=== PATIENT | female | born 1955 | race Caucasian/White ===

== ENCOUNTER 2017-01-15 21:00 | Emergency (ER) | payer MEDICARE, OTHER ==
--- NOTE | ~2017-01-15 | EHP ---
ER History and Physical [address] [place]. [address] NAME: DANNY HEIN : 57 STATUS : [facility] PAT#: [id number] AGE: 61 ADM/REG DATE : 01/15/17 MR#: [id number] REPORT SERV DATE: 01/24/17 DICTATED BY: STACIA HERNANDEZ DATE: 01/24/17 REPORT STATUS : Draft TRANSCRIBED BY: MODL DATE: 01/24/17 ADDENDUM PHYSICAL EXAMINATION: GENERAL: This is an alert, oriented, elderly, white female, in no acute distress. VITAL SIGNS: Blood pressure 140/69, pulse 88, respiratory rate 16, and sats 97% to 100%. HEENT: Within normal limits. Moist mucosa. LUNGS: Clear to auscultation. No wheezing, rales, or rhonchi. Normal effort. HEART: Regular rate and rhythm. No murmurs, gallops, or rubs. ABDOMEN: Bowel sounds are normal. Soft, nontender. Normal system. MUSCULOSKELETAL: Within normal limits. SKIN: Shows no rashes. Normal turgor. LYMPH SYSTEM: No edema or adenopathy. JIE/JULIO KRYSTYNA Riojas / [id number]
[2017-01-15 15:31] LABS: BASOPHILS 0.7 %; BASOPHILS ABSOLUTE 0.05 10/3/uL (0.0-0.16); EOSINOPHILS 0.8 %; EOSINOPHILS ABSOLUTE 0.06 10/3/uL (0.0-0.53); HEMATOCRIT 36.3 % (36.0-48.0); HEMOGLOBIN 12.2 g/dL (12.0-16.0); IMMATURE GRANULOCYTES 0.1 %; IMMATURE GRANULOCYTES ABSOLUTE 0.01 10/3/uL (0.0-0.11); LYMPHOCYTES 21.2 %; LYMPHOCYTES ABSOLUTE 1.63 10/3/uL (0.67-4.30); MEAN CORPUS HGB CONC 33.6 g/dL (32.0-36.0); MEAN CORPUSCULAR HEMOGLOB 27.2 pg (26.0-34.0); MEAN CORPUSCULAR VOLUME 80.8 fL (80-100); MEAN PLATELET VOLUME 8.8 fL (9.2-13.0); MONOCYTES 9.4 %; MONOCYTES ABSOLUTE 0.72 10/3/uL (0.21-1.20); NEUTROPHILS 67.8 %; NEUTROPHILS ABSOLUTE 5.21 10/3/uL (2.02-8.40); PLATELET COUNT 332 10/3/uL (150-400); RBC DISTRIBUTION WIDTH 14.4 % (12.0-16.0); RED CELL COUNT 4.49 10/6/uL (4.0-5.6); WHITE BLOOD CELLS 7.7 10/3/uL (4.5-10.5)
[2017-01-15 15:33] LABS: MANUAL DIFF NO %
[2017-01-15 15:39] LABS: ASCORBIC ACID (UR NOT ORDER) NEG (NEG); BILIRUBIN, URINE NEGATIVE (NEG); ER URINALYSIS TAT 0 Hrs 14 Mins; KETONE, URINE 20 MG/DL (NEG); NITRITE (URINE) NEG (NEG); WBC (NOT ORDERED) (RFLEX) 2 (0-5)
[2017-01-15 15:39] LABS: INTERNATIONAL NORMAL RATI 1.1 UNITS (-); PARTIAL THROMBO TIME 29.9 SEC (22.5-37.2); PROTIME (NOT ORD) 14.2 SEC (12.0-14.5)
[2017-01-15 15:41] LABS: LEUKOCYTE ESTERASE(NOT OR TRACE (NEG)
[2017-01-15 15:49] LABS: BUN (BLOOD UREA NITROGEN) 12 MG/DL (6-23); CALCIUM, SERUM 9.2 MG/DL (8.5-10.4); CHEST PAIN PROFILE TAT 0 Hrs 24 Mins; CHLORIDE, SERUM 95 MMOL/L (96-112); CO2 (CARBON DIOXIDE) 27 MMOL/L (24-34); CREATININE 0.83 MG/DL (0.55-1.02); GFR AFRICAN AMERICAN 89 ML/MIN (>=60); GFR NON AFRICAN AMERICAN 77 ML/MIN (>=60); GLUCOSE, SERUM 91 MG/DL (60-99); POTASSIUM, SERUM 3.7 MMOL/L (3.5-5.3); SODIUM, SERUM 132 MMOL/L (135-148); TROPONIN I <0.02 NG/ML (<0.05)
[~2017-01-15 21:00] MED LIST: *HOMEMEDS; ACET500CAP PO; AMB10 PO; AT25 PO; ATV1 PO; B12250T PO; BENTYL20 PO; CALTRA600D PO; CAT1 PO; CELEXA20 PO; CENTRUM PO; CHLORPHEN4 MG PO; CIP5 PO; COREG12 PO; COREG25 PO; COREG3 PO; COREG6 PO; CRANBERRY475 MG PO; CYANO1000T PO; FLONASE NAS; HALF81 PO; IMDUR30 PO; ISMO20 MG PO; LEVOTHROID75 MCG PO; LEVOTHYROXIN25 MCG PO; LEVOTHYROXIN50 MCG PO; LEVOTHYROXIN75 MCG PO; LIPITOR40 PO; LISINOPRIL40 MG PO; MELA3 PO; MELATONIN5 M1 PO; MONOKET PO; MULTIVITAMI1 PO; NITROII20C TOP; NITROQUICK0.4 MG SL; NITROSTAT0.4 MG SL; OTC ALLERGY MED PO; PAXIL40 MG PO; PLAVIX PO; POT GLUCONAT550 M1 OR; POT GLUCONAT595 M1 OR; PRAVAC PO; PRAVACHOL40 MG PO; PRIN10 PO; PRIN20 PO; PROAIR HFA INH; PROTONIX PO; PROVENTSOL INH; PROVHFA INH; PROZAC PO; RANITIDINE300 MG PO; REMERON30 MG PO; REMERON45 MG PO; SUCR PO; TIROSINT75 MCG PO; TRAZ50 PO; TYLENOL ARTH650 MG PO; VENTOLIN HFA INH; VITAMIN B-121000 MC1 SL; VITAMIN D31000 UNIT PO; VITAMIN D400 UNI1 PO; ZANTAC150 MG PO; ZANTAC300 MG PO; ZESTRIL20 MG PO; ZYRTEC ALLGY10 MG PO
[2017-05-22] MEDS ORDERED: ZEGERID1 CA1 PO (06:59)
[2017-05-22] MEDS ORDERED: AT10 PO (07:00)
[2017-05-22] MEDS ORDERED: COREG25 PO (07:00)
[2017-05-22] MEDS ORDERED: PROZAC PO (07:01)
[2017-05-22] MEDS ORDERED: ZESTRIL40 MG PO (07:01)
[2017-05-22] MEDS ORDERED: PLAVIX PO (07:02)
[2017-05-22] MEDS ORDERED: LIPITOR40 PO (07:02)
[2017-05-22] MEDS ORDERED: ALBUTEROL0.083 % INH (07:03)
[2017-05-22] MEDS ORDERED: TRAZ100 PO (07:03)
[2017-05-22] MEDS ORDERED: NITROII10C TOP (07:06)
[2017-05-22] MEDS ORDERED: PROVHFA INH (07:07)
[2017-05-22] MEDS ORDERED: PROAIR HFA INH (07:07)
[2017-05-22] MEDS ORDERED: REMERON45 MG PO (07:08)
[2017-05-22] MEDS ORDERED: LEVOTHYROXIN75 MCG PO (07:08)
[2017-05-22] MEDS ORDERED: NORV5 PO (07:08)
== END 2017-01-15 22:13 | disposition home or self-care (01) ==
LOC: ER 21:00
PROVIDERS: Emergency Medicine
DX: I10 Essential (primary) hypertension (principal); I25.2 Old myocardial infarction; J45.909 Unspecified asthma, uncomplicated; J44.9 Chronic obstructive pulmonary disease, unspecified; Z98.61 Coronary angioplasty status; K21.9 Gastro-esophageal reflux disease without esophagitis; F32.9 Major depressive disorder, single episode, unspecified; F41.9 Anxiety disorder, unspecified; Z87.891 Personal history of nicotine dependence; Z88.5 Allergy status to narcotic agent; Z88.6 Allergy status to analgesic agent; Z79.899 Other long term (current) drug therapy
CPT/HCPCS: 71020; 80048; 81001; 83735; 84484; 85025; 85610; 85730; 93005; 99285

== ENCOUNTER 2017-03-15 16:33 | Emergency (ER) | payer MEDICARE, OTHER ==
[2017-03-15 15:23] LABS: BASOPHILS 0.4 %; BASOPHILS ABSOLUTE 0.03 10/3/uL (0.0-0.16); EOSINOPHILS 1.2 %; HEMATOCRIT 36.7 % (36.0-48.0); HEMOGLOBIN 12.1 g/dL (12.0-16.0); IMMATURE GRANULOCYTES 0.1 %; IMMATURE GRANULOCYTES ABSOLUTE 0.01 10/3/uL (0.0-0.11); LYMPHOCYTES 18.8 %; LYMPHOCYTES ABSOLUTE 1.61 10/3/uL (0.67-4.30); MANUAL DIFF NO %; MEAN CORPUSCULAR HEMOGLOB 26.7 pg (26.0-34.0); MEAN PLATELET VOLUME 8.8 fL (9.2-13.0); MONOCYTES 4.9 %; MONOCYTES ABSOLUTE 0.42 10/3/uL (0.21-1.20); NEUTROPHILS 74.6 %; NEUTROPHILS ABSOLUTE 6.38 10/3/uL (2.02-8.40); PLATELET COUNT 301 10/3/uL (150-400); RBC DISTRIBUTION WIDTH 15.1 % (12.0-16.0); RED CELL COUNT 4.53 10/6/uL (4.0-5.6); WHITE BLOOD CELLS 8.6 10/3/uL (4.5-10.5)
[2017-03-15 15:32] LABS: INTERNATIONAL NORMAL RATI 1.1 UNITS (-); PROTIME (NOT ORD) 14.2 SEC (12.0-14.5)
[2017-03-15 15:40] LABS: A/G RATIO 1.3 (0.7-1.9); ALBUMIN 4.2 G/DL (3.5-5.0); ALKALINE PHOSPHATASE 86 U/L (45-117); BUN (BLOOD UREA NITROGEN) 14 MG/DL (6-23); CALCIUM, SERUM 9.3 MG/DL (8.5-10.4); CHLORIDE, SERUM 104 MMOL/L (96-112); CO2 (CARBON DIOXIDE) 27 MMOL/L (24-34); CREATININE 1.02 MG/DL (0.55-1.02); GFR AFRICAN AMERICAN 69 ML/MIN (>=60); GFR NON AFRICAN AMERICAN 59 ML/MIN (>=60); GLOBULIN 3.2 G/DL (2.5-4.1); GLUCOSE, SERUM 89 MG/DL (60-99); POTASSIUM, SERUM 3.7 MMOL/L (3.5-5.3); SGOT(AST) 15 U/L (5-40); SGPT(ALT) 23 U/L (5-65); TOTAL BILIRUBIN 0.4 MG/DL (0-1.2); TOTAL PROTEIN 7.4 G/DL (6.0-8.5); TROPONIN I <0.02 NG/ML (<0.05)
[2017-03-15 15:42] LABS: SODIUM, SERUM 139 MMOL/L (135-148)
[2017-05-22] MEDS ORDERED: ZEGERID1 CA1 PO (06:59)
[2017-05-22] MEDS ORDERED: AT10 PO (07:00)
[2017-05-22] MEDS ORDERED: COREG25 PO (07:00)
[2017-05-22] MEDS ORDERED: ZESTRIL40 MG PO (07:01)
[2017-05-22] MEDS ORDERED: PROZAC PO (07:01)
[2017-05-22] MEDS ORDERED: PLAVIX PO (07:02)
[2017-05-22] MEDS ORDERED: LIPITOR40 PO (07:02)
[2017-05-22] MEDS ORDERED: TRAZ100 PO (07:03)
[2017-05-22] MEDS ORDERED: ALBUTEROL0.083 % INH (07:03)
[2017-05-22] MEDS ORDERED: NITROII10C TOP (07:06)
[2017-05-22] MEDS ORDERED: PROAIR HFA INH (07:07)
[2017-05-22] MEDS ORDERED: PROVHFA INH (07:07)
[2017-05-22] MEDS ORDERED: NORV5 PO (07:08)
[2017-05-22] MEDS ORDERED: LEVOTHYROXIN75 MCG PO (07:08)
[2017-05-22] MEDS ORDERED: REMERON45 MG PO (07:08)
== END 2017-03-15 16:45 | disposition home or self-care (01) ==
LOC: ER 16:33
PROVIDERS: Emergency Medicine
DX: J40 Bronchitis, not specified as acute or chronic (principal); I10 Essential (primary) hypertension; I25.2 Old myocardial infarction; J44.9 Chronic obstructive pulmonary disease, unspecified; F32.9 Major depressive disorder, single episode, unspecified; F41.9 Anxiety disorder, unspecified; Z87.891 Personal history of nicotine dependence; Z88.5 Allergy status to narcotic agent; Z88.6 Allergy status to analgesic agent; Z79.899 Other long term (current) drug therapy
CPT/HCPCS: 71010; 80053; 83880; 84484; 85025; 85610; 85730; 93005; 99285

== ENCOUNTER 2017-03-17 18:40 | Observation (INO) | payer MEDICARE ==
--- NOTE | ~2017-03-17 | HP ---
History And Physical [address] [place]. 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 GI: Currently none. CHIEF COMPLAINT: Chest pain. HISTORY OF PRESENT ILLNESS: This is a pleasant, 62-year-old, white female, well known to Dr. See. She does have a history of coronary artery disease status post PCI and plain old balloon angioplasty for in-stent restenosis of the OM1 of the circumflex. She does have residual small vessel circumflex disease that is medically managed. She does also have COPD and GI issues along with [id number] hypertension. She has been in the emergency room five times this year now with symptoms related to elevated blood pressure, shortness of breath, and chest pain. She was sent home from the emergency department last on 03/15/2017, after she had shortness of breath and chest pain, and enzymes and BNP along with x-ray were unremarkable. She again went to the emergency department yesterday after she awakened at 3 o'clock with pain across her precordium with burning that she describes as "heartburn." She had no associated symptoms. At home, she took nitroglycerin with no relief. She had no shortness of breath and again, no associated symptoms, no exertional component to her chest pain. She has been chest pain-free since the ER, and she reports that they gave her aspirin and nitroglycerin in the ER. She reports that she is compliant with all of her medications and that her blood pressure has been better controlled with recent changes by primary care provider. PAST MEDICAL HISTORY: 1. Coronary artery disease status post PCI in 2005 and 2006; status post POBA 05/[address] 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 Barrera. a. Residual untreated small distal circumflex disease not amenable to percutaneous or surgical revascularization per Dr. See's 05/05/2014, with escalating medical management since then. b. Status post intermediate risk nuclear stress test 02/04/2015, because of chest pain and Flaquito stage 2, but no ischemia on imaging; status post low risk nuclear stress test 12/17/2015, in which she reached Flaquito stage 2 and while she had ischemic EKG changes, she did not have any ischemia on imaging. Ejection fraction was greater than 60%. 2. Hypertension. This has been difficult to manage with prior hospitalizations for elevated blood pressure. 3. Hypothyroidism. 4. Depression. 5. Anxiety. 6. COPD/asthma. 7. Dyslipidemia. 8. GERD and other GI issues including the patient reported history of remote GI bleed with History And Physical [address] [address] NAME: DANNY HEIN : 57 STATUS : ADM Shanna PAT#: [id number] AGE: 62 ADM/REG DATE : 03/17/17 MR#: [id number] REPORT SERV DATE: 03/18/17 DICTATED BY: MARY JO DIEGO DATE: 03/18/17 REPORT STATUS : Draft TRANSCRIBED BY: JULIO DATE: 03/18/17 aspirin, for which she declines aspirin since then. 9. Hiatal hernia. 10.Chronic neck pain. 11.Chronic GI issues with nausea and occasional vomiting. 12.Infrequent UTIs. PAST SURGICAL HISTORY: 1. Cholecystectomy. 2. Hysterectomy. SOCIAL HISTORY: . One child. Disabled secondary CAD. Former tobacco, quitting 18 years ago. FAMILY HISTORY: Father with myocardial infarction, which he in his 50s; mother with CAD; brother with NM in his 30s, he is alive. REVIEW OF SYSTEMS: Again, this is her fifth ER visit this year for variant of high blood pressure, shortness of breath, and chest pain. She reports that her blood pressure issues have resolved with changes secondary to primary care, and shortness of breath has resolved at this time. She describes a chronic nausea. As above per HPI, all other systems reviewed and negative. ALLERGIES: MORPHINE; REACTION SHORTNESS OF BREATH, CONFUSION. ASPIRIN; REACTION GI BLEED. HOME MEDICATIONS: List reviewed and is as follows: 1. Albuterol two puffs inhaled every four hours as needed for shortness of breath. 2. Albuterol one neb inhaled daily p.r.n. shortness of breath. 3. Amlodipine 5 mg p.o. daily. 4. Atorvastatin 40 mg p.o. at bedtime. 5. Coreg 25 mg p.o. twice per day. 6. Zyrtec 10 mg p.o. daily. 7. Plavix 75 mg p.o. daily. 8. Benadryl 50 mg p.o. at bedtime. 9. Prozac 20 mg p.o. daily. 10.Atarax 10 mg p.o. four times per day as needed for anxiety. 11.Levothyroxine 75 mcg p.o. daily. 12.Lisinopril 40 mg p.o. daily. 13.Imodium 2 mg p.o. four times per day as needed for diarrhea. 14.Remeron 45 mg p.o. at bedtime. 15.Nitroglycerin dermal patch 0.2 mg/hour. The patient reports she places the patch at 0900 hours and takes it off at 2100 hours. 16.Zegerid 40 mg p.o. daily. 17.Phenergan 25 mg p.o. every six hours as needed for nausea. 18.Vistaril 100 mg p.o. at bedtime. PHYSICAL EXAMINATION: VITAL SIGNS: Oxygen saturation 92% on room air, weight 65.59 kg, BMI 26.1, temperature History And Physical [address] [address] NAME: DANNY HEIN : 57 STATUS : ADM Shanna PAT#: [id number] AGE: 62 ADM/REG DATE : 03/17/17 MR#: [id number] REPORT SERV DATE: 03/18/17 DICTATED BY: MARY JO DIEGO DATE: 03/18/17 REPORT STATUS : Draft TRANSCRIBED BY: MODL DATE: 03/18/17 97.9, pulse 81, respiratory rate 14, blood pressure 104/52. GENERAL: Well developed, well nourished. In no apparent distress. HEENT: Head normocephalic. No xanthelasma. Sclera clear, anicteric. Moist mucous membranes without pallor. No lymphadenopathy. No deficits noted. NECK: Trachea midline. Supple. No thyromegaly, JVD, or bruits. RESPIRATORY: Unlabored respirations. Breath sounds clear bilaterally to posterior auscultation. No wheezes, rhonchi or crackles. CARDIOVASCULAR: Regular rate and rhythm. No murmur, rub, or gallop appreciated. No chest wall tenderness to palpation. ABDOMEN: Soft, nontender, and nondistended. Active bowel sounds auscultated x4 quadrants. No organomegaly and no masses. No aortic bruit. EXTREMITIES: DP/PT and radial pulses 2+ bilaterally. No clubbing, cyanosis, or edema. SKIN: Warm, dry, intact. No rash. Normal turgor. MUSCULOSKELETAL: Moves all extremities in bed without difficulty. NEURO/PSYCH: Alert and oriented x3 with no acute distress. Affect appropriate to current situation. LABORATORY DATA: BMP: Sodium 140, potassium 3.8, creatinine 0.97, glucose 79, calcium 9.4, magnesium 2.1. CBC: White blood cell count 8.3, hemoglobin 12, hematocrit 36.7, platelets 298. Troponin less than 0.02 x2. BNP recently was 76. CMP was unremarkable with LFTs okay. DIAGNOSTIC STUDIES: 1. Chest x-ray, no acute processes with lung changes consistent with COPD. 2. EKGs, personally interpreted normal sinus rhythm, no ischemia. 3. Telemetry, normal sinus rhythm. ASSESSMENT/PLAN: 1. Precordial chest pain with atypical features that are described as heartburn. There is no exertional component. Nitroglycerin did not help. Two negative troponins. EKGs do not reveal any ischemia. Plan nuclear stress test in the morning for cardiac risk factors of CAD, hypertension. RN is to discharge the patient home if it is low risk with no ischemia. She is to follow up with Dr. See and her primary care provider. 2. Coronary artery disease, status post PCI/POBA of the circumflex with management of small distal circumflex disease. I will continue her excellent cardiac medications with nitroglycerin patch, amlodipine, lisinopril, her statin, beta marleny, and Plavix. Unfortunately, she continues to decline aspirin secondary to remote history of GI bleed and GI issues with aspirin. 3. Gastroesophageal reflux disease. Continue current medications. She reports being fired by her GI doctor, Dr. Kennedy, and she is instructed to establish with a new GI doctor for continued followup. Followup with PCP as well. 4. Hypertension. This is well controlled. We will continue the current medications. 5. Further recommendations forthcoming for rounding tie layer for CPOU. History And Physical [address] [place]. [address] NAME: DANNY HEIN : 57 STATUS : ADM Shanna PAT#: [id number] AGE: 62 ADM/REG DATE : 03/17/17 MR#: [id number] REPORT SERV DATE: 03/18/17 DICTATED BY: MARY JO DIEGO DATE: 03/18/17 REPORT STATUS : Draft TRANSCRIBED BY: JULIO DATE: 03/18/17 MICHELLE/JULIO Mary Jo Diego NP / [id number] CC: Priscila Bacon, CHAD, [employer]ER-BC Yanely Lopez Jr., M.D.
[2017-03-17 16:43] LABS: BASOPHILS 0.6 %; BASOPHILS ABSOLUTE 0.05 10/3/uL (0.0-0.16); EOSINOPHILS 1.7 %; EOSINOPHILS ABSOLUTE 0.14 10/3/uL (0.0-0.53); HEMATOCRIT 36.7 % (36.0-48.0); IMMATURE GRANULOCYTES 0.1 %; IMMATURE GRANULOCYTES ABSOLUTE 0.01 10/3/uL (0.0-0.11); LYMPHOCYTES 22.3 %; LYMPHOCYTES ABSOLUTE 1.85 10/3/uL (0.67-4.30); MEAN CORPUS HGB CONC 32.7 g/dL (32.0-36.0); MEAN CORPUSCULAR HEMOGLOB 26.8 pg (26.0-34.0); MEAN CORPUSCULAR VOLUME 81.9 fL (80-100); MEAN PLATELET VOLUME 8.9 fL (9.2-13.0); MONOCYTES ABSOLUTE 0.66 10/3/uL (0.21-1.20); NEUTROPHILS 67.3 %; NEUTROPHILS ABSOLUTE 5.58 10/3/uL (2.02-8.40); PLATELET COUNT 298 10/3/uL (150-400); RBC DISTRIBUTION WIDTH 15.3 % (12.0-16.0); RED CELL COUNT 4.48 10/6/uL (4.0-5.6); WHITE BLOOD CELLS 8.3 10/3/uL (4.5-10.5)
[2017-03-17 16:48] LABS: MANUAL DIFF NO %
[2017-03-17 16:50] LABS: INTERNATIONAL NORMAL RATI 1.1 UNITS (-); PARTIAL THROMBO TIME 28.7 SEC (22.5-37.2); PROTIME (NOT ORD) 13.9 SEC (12.0-14.5)
[2017-03-17 17:03] LABS: BUN (BLOOD UREA NITROGEN) 12 MG/DL (6-23); CALCIUM, SERUM 9.4 MG/DL (8.5-10.4); CHEST PAIN PROFILE TAT 0 Hrs 26 Mins; CHLORIDE, SERUM 107 MMOL/L (96-112); CO2 (CARBON DIOXIDE) 27 MMOL/L (24-34); CREATININE 0.97 MG/DL (0.55-1.02); GFR AFRICAN AMERICAN 73 ML/MIN (>=60); GFR NON AFRICAN AMERICAN 63 ML/MIN (>=60); GLUCOSE, SERUM 79 MG/DL (60-99); POTASSIUM, SERUM 3.8 MMOL/L (3.5-5.3); SODIUM, SERUM 140 MMOL/L (135-148); TROPONIN I <0.02 NG/ML (<0.05)
[2017-03-17] MEDS ORDERED: PR25 PO (19:40)
[2017-03-17] MEDS ORDERED: PROVHFA INH (19:40)
[2017-03-17] MEDS ORDERED: AT10 PO (19:41)
[2017-03-17] MEDS ORDERED: IMOD PO (19:41)
[2017-03-17] MEDS ORDERED: ZEGERID1 CA1 PO (19:41)
[2017-03-17] MEDS ORDERED: ZYRTEC ALLGY10 MG PO (19:42)
[2017-03-17] MEDS ORDERED: NORV5 PO (19:42)
[2017-03-17] MEDS ORDERED: ALBUTEROL0.083 % INH (19:42)
[2017-03-17] MEDS ORDERED: COREG25 PO (19:42)
[2017-03-17] MEDS ORDERED: LIPITOR40 PO (19:43)
[2017-03-17] MEDS ORDERED: LISINOPRIL40 MG PO (19:43)
[2017-03-17] MEDS ORDERED: BEN25 PO (19:43)
[2017-03-17] MEDS ORDERED: LEVOTHYROXIN75 MCG PO (19:45)
[2017-03-17] MEDS ORDERED: PLAVIX PO (19:45)
[2017-03-17] MEDS ORDERED: REMERON45 MG PO (19:45)
[2017-03-17] MEDS ORDERED: OMNICEF300 PO (19:45)
[2017-03-17] MEDS ORDERED: TRAZ100 PO (19:45)
[2017-03-17] MEDS ORDERED: NITROII10C TOP (19:46)
[2017-03-17] MEDS ORDERED: PROZAC PO (19:46)
[2017-05-22] MEDS ORDERED: ZEGERID1 CA1 PO (06:59)
[2017-05-22] MEDS ORDERED: COREG25 PO (07:00)
[2017-05-22] MEDS ORDERED: AT10 PO (07:00)
[2017-05-22] MEDS ORDERED: ZESTRIL40 MG PO (07:01)
[2017-05-22] MEDS ORDERED: PROZAC PO (07:01)
[2017-05-22] MEDS ORDERED: PLAVIX PO (07:02)
[2017-05-22] MEDS ORDERED: LIPITOR40 PO (07:02)
[2017-05-22] MEDS ORDERED: ALBUTEROL0.083 % INH (07:03)
[2017-05-22] MEDS ORDERED: TRAZ100 PO (07:03)
[2017-05-22] MEDS ORDERED: NITROII10C TOP (07:06)
[2017-05-22] MEDS ORDERED: PROVHFA INH (07:07)
[2017-05-22] MEDS ORDERED: PROAIR HFA INH (07:07)
[2017-05-22] MEDS ORDERED: REMERON45 MG PO (07:08)
[2017-05-22] MEDS ORDERED: LEVOTHYROXIN75 MCG PO (07:08)
[2017-05-22] MEDS ORDERED: NORV5 PO (07:08)
== END 2017-03-19 15:05 | disposition home or self-care (01) ==
LOC: ER 18:40 → CDU1 20:33
PROVIDERS: Emergency Medicine
DX: R07.2 Precordial pain (principal); I25.10 Atherosclerotic heart disease of native coronary artery without angina pectoris; J44.9 Chronic obstructive pulmonary disease, unspecified; I10 Essential (primary) hypertension; E03.9 Hypothyroidism, unspecified; F32.9 Major depressive disorder, single episode, unspecified; F41.9 Anxiety disorder, unspecified; J45.909 Unspecified asthma, uncomplicated; E78.5 Hyperlipidemia, unspecified; K21.9 Gastro-esophageal reflux disease without esophagitis; Z87.440 Personal history of urinary (tract) infections; Z90.49 Acquired absence of other specified parts of digestive tract; Z90.710 Acquired absence of both cervix and uterus; Z87.891 Personal history of nicotine dependence; Z88.5 Allergy status to narcotic agent; Z88.8 Allergy status to other drugs, medicaments and biological substances; Z79.899 Other long term (current) drug therapy; Z79.02 Long term (current) use of antithrombotics/antiplatelets
CPT/HCPCS: 71020; 78452; 80048; 83735; 84484; 85025; 85610; 85730; 93005; 93017; 99285; A9270-GY; A9502; G0378

== ENCOUNTER 2017-04-13 11:24 | Emergency (ER) | payer MEDICARE, OTHER ==
[~2017-04-13 11:24] MED LIST changes: +ALBUTEROL0.083 % INH; +AT10 PO; +BEN25 PO; +IMOD PO; +NITROII10C TOP; +NORV5 PO; +OMNICEF300 PO; +PR25 PO; +TRAZ100 PO; +ZEGERID1 CA1 PO
[2017-04-13 13:15] LABS: BASOPHILS 0.9 %; BASOPHILS ABSOLUTE 0.06 10/3/uL (0.0-0.16); CHLORIDE, SERUM 105 MMOL/L (96-112); EOSINOPHILS 2.5 %; EOSINOPHILS ABSOLUTE 0.17 10/3/uL (0.0-0.53); HEMATOCRIT 37.7 % (36.0-48.0); HEMOGLOBIN 12.3 g/dL (12.0-16.0); IMMATURE GRANULOCYTES 0.3 %; IMMATURE GRANULOCYTES ABSOLUTE 0.02 10/3/uL (0.0-0.11); LYMPHOCYTES 24.5 %; LYMPHOCYTES ABSOLUTE 1.69 10/3/uL (0.67-4.30); MEAN CORPUS HGB CONC 32.6 g/dL (32.0-36.0); MEAN CORPUSCULAR HEMOGLOB 26.6 pg (26.0-34.0); MEAN CORPUSCULAR VOLUME 81.4 fL (80-100); MONOCYTES 6.8 %; MONOCYTES ABSOLUTE 0.47 10/3/uL (0.21-1.20); PLATELET COUNT 309 10/3/uL (150-400); RBC DISTRIBUTION WIDTH 15.3 % (12.0-16.0); RED CELL COUNT 4.63 10/6/uL (4.0-5.6); SODIUM, SERUM 139 MMOL/L (135-148); WHITE BLOOD CELLS 6.9 10/3/uL (4.5-10.5)
[2017-04-13 13:18] LABS: ER CBC TAT 0 Hrs 00 Mins; MANUAL DIFF NO %
[2017-04-13 13:19] LABS: A/G RATIO 1.3 (0.7-1.9); ALBUMIN 4.2 G/DL (3.5-5.0); CALCIUM, SERUM 9.3 MG/DL (8.5-10.4); CO2 (CARBON DIOXIDE) 27 MMOL/L (24-34); GFR AFRICAN AMERICAN 92 ML/MIN (>=60); GFR NON AFRICAN AMERICAN 80 ML/MIN (>=60); GLOBULIN 3.3 G/DL (2.5-4.1); GLUCOSE, SERUM 92 MG/DL (60-99); SGOT(AST) 20 U/L (5-40); SGPT(ALT) 23 U/L (5-65); TOTAL BILIRUBIN 0.7 MG/DL (0-1.2); TOTAL PROTEIN 7.5 G/DL (6.0-8.5)
[2017-04-13 13:21] LABS: ALKALINE PHOSPHATASE 102 U/L (45-117); BUN (BLOOD UREA NITROGEN) 16 MG/DL (6-23)
[2017-04-13 13:26] LABS: ASCORBIC ACID (UR NOT ORDER) NEG (NEG); BILIRUBIN, URINE NEGATIVE (NEG); ER URINALYSIS TAT 0 Hrs 00 Mins; KETONE, URINE NEGATIVE (NEG); LEUKOCYTE ESTERASE(NOT OR NEG (NEG); NITRITE (URINE) NEG (NEG); WBC (NOT ORDERED) (RFLEX) < 1 (0-5)
[2017-05-22] MEDS ORDERED: ZEGERID1 CA1 PO (06:59)
[2017-05-22] MEDS ORDERED: COREG25 PO (07:00)
[2017-05-22] MEDS ORDERED: AT10 PO (07:00)
[2017-05-22] MEDS ORDERED: PROZAC PO (07:01)
[2017-05-22] MEDS ORDERED: ZESTRIL40 MG PO (07:01)
[2017-05-22] MEDS ORDERED: PLAVIX PO (07:02)
[2017-05-22] MEDS ORDERED: LIPITOR40 PO (07:02)
[2017-05-22] MEDS ORDERED: ALBUTEROL0.083 % INH (07:03)
[2017-05-22] MEDS ORDERED: TRAZ100 PO (07:03)
[2017-05-22] MEDS ORDERED: NITROII10C TOP (07:06)
[2017-05-22] MEDS ORDERED: PROAIR HFA INH (07:07)
[2017-05-22] MEDS ORDERED: PROVHFA INH (07:07)
[2017-05-22] MEDS ORDERED: NORV5 PO (07:08)
[2017-05-22] MEDS ORDERED: LEVOTHYROXIN75 MCG PO (07:08)
[2017-05-22] MEDS ORDERED: REMERON45 MG PO (07:08)
== END 2017-04-13 13:48 | disposition home or self-care (01) ==
LOC: ER 11:24
PROVIDERS: Nurse Practitioner Acute Care
DX: R11.2 Nausea with vomiting, unspecified (principal); Z87.891 Personal history of nicotine dependence; J45.909 Unspecified asthma, uncomplicated; J44.9 Chronic obstructive pulmonary disease, unspecified; I10 Essential (primary) hypertension; F41.9 Anxiety disorder, unspecified; F32.9 Major depressive disorder, single episode, unspecified; K21.9 Gastro-esophageal reflux disease without esophagitis; Z95.5 Presence of coronary angioplasty implant and graft; I25.10 Atherosclerotic heart disease of native coronary artery without angina pectoris; Z90.49 Acquired absence of other specified parts of digestive tract; Z90.710 Acquired absence of both cervix and uterus; Z88.5 Allergy status to narcotic agent; Z88.6 Allergy status to analgesic agent; Z79.899 Other long term (current) drug therapy
CPT/HCPCS: 80053; 81001; 83690; 85025; 96374; 99284; J2405